=== PATIENT | male | born 1980 | race African-American/Black ===

== ENCOUNTER 2016-08-14 11:27 | Inpatient (IN) ==
--- NOTE | 2016-08-14 11:55 | Emergency Department Note ---
Arrival - Arrival Chief Complaint: Abscess Stated Complaint: abscess ED Nursing Triage Note: C/O HAVING ABSCESS ON FACE/CHIN/NECK SINCE MONDAY, STATES WAS GIVEN A RX FOR CLINDAMYCIN ON MONDAY - BUT STATES THAT HE DID NOT GET THAT FILLED., WAS GIVEN 600 MG OF CLINDAMYCIN IV PRIOR TO ARRIVAL ., Mode of Arrival: Stretcher Limitations: No Limitations Source: Patient, Old Records Reviewed, RN Notes Reviewed Time Seen by Provider: 08/14/16 11:41 - History of Present Illness HPI Narrative: Patient is a 36-year-old white male with a history of facial cellulitis and abscess for which he was seen at [facility] emergency department on Saturday 08/12. Patient did not get his medications filled. The patient returned today to [facility] much worse. Swelling has now extended down around his chin down onto the anterior neck. Patient was given IV clindamycin at [facility] prior to transfer today. Onset (ago): day(s) (2) Consistency: constant Severity: moderate, severe Allergies/Adverse Reactions: Allergies Allergy/AdvReac Type Severity Reaction Status Date / Time No Known Allergies Allergy Unverified 08/14/16 11:36 Review of System - Review of System 12 point system: reviewed and no additional remarkable complaints except as stated Medical,Surgical,& Family Hx - Medical History Medical History: noncontributory - Social History Smoking Status: Current every day smoker (One half pack per day) Frequency of Alcohol Use: None Type of Drug Use: None Functional capacity: independent ambulation Exam Vital Signs: Vital Signs Temperature 99.2 F 08/14/16 11:28 Pulse Rate 95 H 08/14/16 11:34 Respiratory Rate 20 08/14/16 11:34 Blood Pressure 134/84 08/14/16 11:34 O2 Sat by Pulse Oximetry 100 08/14/16 11:34 GENERAL: This is a well-nourished well-developed white male in no apparent distress. VITAL SIGNS: Reviewed HEENT: Head is atraumatic and normocephalic. Pupils are equal round react to light. Extraocular movements are intact. Oropharynx is benign with moist mucous membranes. Patient has an area of overlying erythema induration and fluctuance in the area of the chin to the right of the midline. There is some fluctuance in the submental area and there is erythema which extends over the chin to the submental area and onto the anterior portion of the neck. This extends distally to almost the sternoclavicular joint. NECK: Neck is soft and supple without tenderness. There are no masses. There is no lymphadenopathy. LUNGS: Lungs are clear to auscultation. Chest rises symmetrically. There is no chest wall tenderness. CV: Heart is regular rate and rhythm without murmurs rubs or gallops. ABDOMEN: Abdomen is soft, nontender to palpation. There are no abdominal abnormal masses palpated. There is no organomegaly. Bowel sounds are present and active. SKIN: Skin is warm and dry. No rash. EXTREMITIES: Patient has full range of motion without tenderness. There is no pedal edema. NEUROLOGIC: Awake alert and oriented 4. Cranial nerves II through XII are grossly intact. Motor is 5 over 5 in all extremities bilaterally. Course - Consultations Consultation #1: Discussed with hospitalist. Patient will be admitted to their service. Time: 11:56 Results - Labs Labs: Labs are pending at this time. Disposition Clinical Impression: Cellulitis and abscess of face Case discussed with: patient Disposition: Still a Patient Condition: Stable Time of Disposition: 11:56
[2016-08-14] MEDS ORDERED: VANCOMYCIN INJ 1,000 MG in SODIUM CHLORIDE 0.9% 250 ML IV STA (12:02)
[2016-08-14] MEDS ORDERED: HYDROmorphone 2 MG/1 ML VIAL IV STA (12:02)
[2016-08-14] MEDS ORDERED: ONDANSETRON 4 MG/2 ML VIAL IV STA (12:02)
[2016-08-14] MEDS ORDERED: ONDANSETRON 4 MG/2 ML VIAL ONE (12:04)
[2016-08-14] MEDS ORDERED: HYDROmorphone 2 MG/1 ML VIAL ONE (12:04)
--- NOTE | 2016-08-14 12:15 | XRay Report ---
XR chest 2V Date: 08/14/2016 11:48 AM History: Facial cellulitis Comparison: None Technique: PA and lateral chest Findings: The heart is normal in size. Minimal diffuse parenchymal findings at the lung bases. Prior anterior cervical fusion. Unremarkable mediastinum. Impression: Expiratory chest with minimal atelectasis/infiltration at the lung bases. PROCEDURE INTERPRETED AT [facility] DEPARTMENT OF RADIOLOGY Final Report Signed by: Dr. Abby Sandra
[2016-08-14 12:18] LABS: Basophils # 0.1 10*3/uL (0.0-0.2); Basophils % 0.5 % (0.0-0.8); Eosinophils # 0.1 10*3/uL (0.0-0.87); Eosinophils % 0.3 % (0.00-10.9); Hematocrit 45.3 VOL% (42.0-52.0); Hemoglobin 15.4 GM/DL (14.0-18.0); Immature Granulocytes % 0.4 %; Immature Granulocytes Absolute 0.06 #; Lymphocytes # 2.1 10*3/uL (1.4-4.0); Lymphocytes % 14.2 % (21.2-54.2); Mean Corpuscular Hemoglobin 31 PG (27-34); Mean Corpuscular Volume 90.8 FL (87-102); Mean Platelet Volume 9.1 FL (9.6-12.0); Monocytes # 1.3 10*3/uL (0.11-0.8); Monocytes % 8.7 % (1.7-12.7); Neutrophils # 11.1 10*3/uL (1.4-7.4); Neutrophils % 75.9 % (38.7-73.9); Platelet Count 245 T/CUMM (130-400); Red Blood Count 4.99 MC/CUMM (3.8-5.5); Red Cell Distribution Width 11.9 % (9.3-17.3); White Blood Count 14.7 T/CUMM (4-12)
[2016-08-14] MEDS ORDERED: ZALEPLON 5 MG CAPSULE PO PRN (12:24)
[2016-08-14] MEDS ORDERED: MORPHINE 2 MG/1 ML SYRINGE IV PRN (12:24)
--- NOTE | 2016-08-14 12:34 | Hospitalist History & Physical ---
<Jonathan Roberts - Last Filed: 08/14/16 12:23> Assessment and Plan - Time spent with patient Time spent with patient: Greater than 30 minutes (1) Cellulitis and abscess of face Status: Acute Assessment and plan: Fluctuant abscess to mental/submental face and erythematous anterior neck. IV Clinadamycin 900mg. Consult ENT for I&D. Current Visit: Yes History of Present Illness Chief complaint: abscess History of present illness: Mr. Douglass is a 36 year old male with no significant past medical history who presents to the ED with complaints of an abscess x 3 days. The patient reports he shaved on Monday morning and first noticed a reddened, swollen area on his chin Monday night that has progressively worsened. He was seen in the [facility] ED and treated with IV Clindamycin as well as given a Rx for p.o. Clindamycin which he never filled. Patient states that he "has no money" and the prescription was too expensive. Today, on exam, the abscess has worsened and is now inclusive of his chin, submental area and right side of his anterior neck. He is exquisitely tender to palpation of these areas. The submental abscess is approximatedly 4-5cm in diameter and fluctuant. The patient rates this pain as a 10/10 and finds it difficult to smile and speak. He denies any other pain or complaints in the ER. He is retired from the [employer] and smokes 1/2 pack of cigarettes per day. Preliminary labs reveal WBC 14.7. Findings have been discussed with both Dr. Gallagher and Dr. Carbajal. He will be admitted to the hospital medicine service for treatment with IV antibiotics, pain control and possible ENT consult for I&D. Home Medications Medication Instructions Recorded Confirmed Type No Known Home Medications [No 08/14/16 08/14/16 History Known Home Medications] Allergies Allergy/AdvReac Type Severity Reaction Status Date / Time No Known Allergies Allergy Unverified 08/14/16 11:36 Medical,Surgical,& Family Hx - Social History Smoking Status: Current every day smoker (One half pack per day) Frequency of Alcohol Use: None Type of Drug Use: None Marital Status: Single Lives With:: Alone Functional capacity: independent ambulation - Constitutional Constitutional: Absent: fatigue, fever(s), frequent falls, headache(s), weakness - EENT Eyes: Absent: blurry vision, loss of vision Ears: Absent: decreased hearing, ear pain Nose, mouth and throat: Present: neck pain, other (abscess and erythema of mental/submental areas). Absent: dysphagia, epistaxis, headache(s), hoarseness - Cardiovascular Cardiovascular: Absent: chest pain at rest, chest pain with activity, dyspnea, dyspnea on exertion, edema, radiating jaw, neck or arm pain - Respiratory Respiratory: Absent: cough, dyspnea, hemoptysis, dyspnea on exertion, wheezing, pain on inspiration - Gastrointestinal Gastrointestinal: Absent: abdominal pain, change in bowel habits, constipation, nausea, vomiting - Genitourinary Genitourinary: Absent: difficulty urinating, dysuria, flank pain - Musculoskeletal Musculoskeletal: Absent: arthralgias, back pain, joint swelling, limited range of motion, muscle cramps - Neurological Neurological: Present: numbness (lower lip). Absent: abnormal gait, abnormal speech - Psychiatric Psychiatric: Absent: anxiety, depression - Endocrine Endocrine: Absent: cold intolerance, fatigue, heat intolerance - Hematologic/Lymphatic Hematologic/Lymphatic: Absent: easy bleeding, easy bruising Exam - Constitutional Vitals: Period Temp Pulse Resp BP Sys/Swartz Pulse Ox Last 24 Hr 99.2 F 95-110 20-20 134-134/84-90 100-100 Exam: General appearance: normal weight, no acute distress - Head Head exam: Present: normocephalic, atraumatic - Eye Eye exam: Present: EOMI. Absent: conjunctival injection, nystagmus Pupils: Present: MAGDI, normal accommodation - ENT ENT exam: Present: normal exam, normal external ear exam, erythematous mental/ submental abscess - Neck Neck exam: Present: tender to palpation. Absent: thyromegaly - Respiratory Respiratory exam: Present: clear to auscultation bilaterally. Absent: rales, rhonchi, wheezes - Cardiovascular Cardiovascular exam: Present: tachycardia. Absent: carotid bruit, gallop, rubs - GI/Abdominal GI/Abdominal exam: Present: normal bowel sounds. Absent: ascites, distended, mass - Extremities Exam Extremities exam: Present: normal inspection, normal capillary refill. Absent: edema - Back Exam Back exam: Absent: CVA tenderness (L), CVA tenderness (R) - Neurological Exam Neurological exam: Present: alert, oriented X3 - Psychiatric Psychiatric exam: Present: normal affect, normal mood - Skin Skin exam: Present: erythematous abscess to chin and anterior neck, otherwise no abnormalities Results - Labs CBC & BMP: 08/14/16 12:08 Lab Results: I have reviewed the past 24 hour labs <Victor Hugo Carbajal - Last Filed: 08/14/16 13:06> Assessment and Plan (1) Cellulitis and abscess of face Status: Acute Assessment and plan: Agree with clindamycin and ENT consult. Current Visit: Yes History of Present Illness History of present illness: Mr. Douglass is a 36 year old male transferred to the emergency department from [facility] where he presented with a submental abscess that began on Monday and his quickly worsened. The patient was prescribed outpatient antibiotics but failed to purchase them or start therapy. I have independently seen the patient and discussed the case with EVELYN Esparza. I agree with the diagnosis and treatment plan listed above. I evaluated this patient and completed an independent history and physical examination. I coordinated care with EVELYN Esparza. I agree with the documentation that he provides below. The patient is a full code Medical,Surgical,& Family Hx - Medical History Cardio: No history of: Hypertension 12 point system: reviewed and no additional remarkable complaints except as stated - Constitutional Constitutional: Present: as per HPI Exam - Constitutional Vitals: Period Temp Pulse Resp BP Sys/Swartz Pulse Ox Last 24 Hr 99.2 F 91-110 16-20 134-147/84-90 99-100 Results - Labs CBC & BMP: 08/14/16 12:08 08/14/16 12:08 Lab Results: I have reviewed the past 24 hour labs
[2016-08-14 12:43] LABS: Albumin 4.1 G/DL (3.4-5.0); Bilirubin,Total 0.8 MG/DL (0.2-1.0); Calcium 9.2 MG/DL (8.5-10.1); Osmolality,Calculated 272.7 MOS/KG (273-304); Potassium 3.9 MMOL/L (3.5-5.1); Total Protein 7.6 G/DL (6.4-8.3)
[2016-08-14] MEDS ORDERED: CLINDAMYCIN INJ 900 MG in PREMIX 1 EACH IV SCH (13:00)
[2016-08-14] MEDS: ENOXAPARIN 40 MG/0.4 ML SYRINGE SUBCUT SCH (14:58)
[2016-08-14] MEDS: MORPHINE 2 MG/1 ML SYRINGE IV PRN ×3 (15:04→21:06)
[2016-08-14] MEDS: NICOTINE 21 MG/24 HR PATCH TRANSDERM PRN (15:05)
[2016-08-14] MEDS: CLINDAMYCIN INJ 900 MG in PREMIX 1 EACH IV SCH ×2 (17:16→23:41)
[2016-08-14] MEDS: ACETAMINOPHEN 325 MG TABLET PO PRN (18:02)
[2016-08-14] MEDS ORDERED: PHENOL 1.4% THROAT SPRAY 177 ML BOTTLE PO PRN (18:04)
[2016-08-14 19:09] LABS: Apearance,Urine CLEAR (Clear); Bilirubin,Urine Negative (Negative); Blood, Urine Negative (Negative); Glucose,Urine (UA) Negative (Negative); Ketones,Urine Negative (Negative); Mucus,Urine Few /LPF (Occasional); Nitrite,Urine Negative (Negative); Protein,Urine Negative; RBC,Urine <1 /HPF (0-4); Urine Color Yellow (Yellow); Urine Specific Gravity 1.015 (1.001-1.035); Urine Urobilinogen < 2.0 EU/DL (0.2-1.0); WBC,Urine 2 /HPF (0-6)
[2016-08-14 19:15] LABS: Barbiturates Screen,Urine Negative (Negative); Benzodiazepines Screen,Urine Negative (Negative); Cannabinoid Screen,Urine Negative (Negative); Opiate Screen,Urine Positive (Negative); Phencyclidine Screen,Urine Negative (Negative)
[2016-08-15] MEDS: MORPHINE 2 MG/1 ML SYRINGE IV PRN ×6 (04:18→17:33)
[2016-08-15] MEDS: CLINDAMYCIN INJ 900 MG in PREMIX 1 EACH IV SCH ×3 (06:13→17:11)
[2016-08-15 06:21] LABS: Basophils # 0.1 10*3/uL (0.0-0.2); Basophils % 0.6 % (0.0-0.8); Eosinophils # 0.1 10*3/uL (0.0-0.87); Eosinophils % 1.3 % (0.00-10.9); Hematocrit 44.8 VOL% (42.0-52.0); Hemoglobin 14.8 GM/DL (14.0-18.0); Immature Granulocytes % 0.4 %; Immature Granulocytes Absolute 0.04 #; Lymphocytes # 1.6 10*3/uL (1.4-4.0); Lymphocytes % 16.2 % (21.2-54.2); Mean Corpuscular Hemoglobin 30 PG (27-34); Mean Corpuscular Volume 91.4 FL (87-102); Mean Platelet Volume 9.3 FL (9.6-12.0); Monocytes # 1.1 10*3/uL (0.11-0.8); Monocytes % 11.2 % (1.7-12.7); Neutrophils # 7.1 10*3/uL (1.4-7.4); Neutrophils % 70.3 % (38.7-73.9); Platelet Count 230 T/CUMM (130-400); White Blood Count 10.1 T/CUMM (4-12)
[2016-08-15] MEDS ORDERED: DIAZEPAM 5 MG TABLET PO ONE (09:58)
[2016-08-15] MEDS ORDERED: MORPHINE 2 MG/1 ML SYRINGE IV ONE (09:59)
[2016-08-15] MEDS ORDERED: diphenhydrAMINE CAP 25 MG CAPSULE PO ONE (09:59)
[2016-08-15] MEDS ORDERED: LIDOCAINE 2%/EPI 20 ML VIAL MISC INJ ONE (10:28)
--- NOTE | 2016-08-15 10:40 | Hospitalist Progress Note ---
Assessment and Plan (1) Cellulitis and abscess of face Status: Acute Assessment and plan: The patient continues on IV antibiotics and pain medicine. Urine drug screen reveals methamphetamine and narcotic. The patient will continue on present regimen and Dr. Soriano will evaluate him for possible debridement later today. Current Visit: Yes Hospitalist: Subjective Interval history: The patient is resting quietly in room today. He is receiving IV antibiotics with clindamycin. Dr. cruz has agreed to see the patient and consider debridement of the patient's submental abscess. The patient does not have any shortness of breath or angina. Exam - Constitutional Vitals: Period Temp Pulse Resp BP Sys/Swartz Pulse Ox Last 24 Hr 97.6 F-99.5 F 76-111 16-20 100-147/62-90 95-100 Exam: Constitutional System: Mild to moderate distress on account of abscess under the chin. Mild tremulousness. Head: Normocephalic, atraumatic. Ears, Nose and Throat System: No evidence of Otitis or Mastoiditis. No epistaxis or discharge Eyes System: Pupils equal, round, and reactive. Extraocular muscles intact. Neck: Supple, without adenopathy, No jugular venous distention. There is induration of the chin and submental area Respiratory System: Chest clear to auscultation. Cardiovascular System: Heart with regular rate and rhythm. No murmur. GI System: Abdomen soft, nontender. Normo active bowel sounds present. Musculoskeletal System: limbs with no pedal edema. Full distal pulses. Neurological System: No discernable sensory deficit. No aphasia Psychiatric System: Conversation is rational Results - Labs CBC & BMP: 08/15/16 06:12 08/14/16 12:08 Lab Results: I have reviewed the past 24 hour labs
[2016-08-15] MEDS: ENOXAPARIN 40 MG/0.4 ML SYRINGE SUBCUT SCH (12:00)
--- NOTE | 2016-08-15 13:01 | Consultation ---
Assessment and Plan - Time spent with patient Time spent with patient: Greater than 30 minutes (1) Abscess or cellulitis, neck Status: Acute Assessment and plan: Abscess incision and drainage with packing and cultures taken. I will follow- up tomorrow for removal of the packing and possible replacement we may consider him being able to go home and wound care may or may not be able to follow him either with home health or at the hospital he will also be able to follow-up with me. We may want to wait until he gets the results of the culture back so that we can direct her antibiotic therapy. I will defer the above decisions to the hospitalist. Thank you very much for this consult I will continue to follow this case during his stay Current Visit: Yes (2) Facial pain, acute Status: Acute Current Visit: Yes (3) Cellulitis and abscess of face Status: Acute Current Visit: Yes History of Present Illness - Data of Consult Patient: new to practice Consult date: 08/15/16 Requesting Physician: Fredis Cervantes - Consult Narrative Reason for consult: Facial and neck abscess History of present illness: Mr. Douglass is a 36 year old male with a chin and neck abscess that has not resolved with IV antibiotics and has continued to increase and pain and size over the last few days and he is consulted for evaluation and treatment CC: Fredis Cervantes MD - Home Medications and Allergies Home Medications: Home Medications Medication Instructions Recorded Confirmed Type No Known Home Medications [No 08/14/16 08/14/16 History Known Home Medications] Allergies/Adverse Reactions: Allergies Allergy/AdvReac Type Severity Reaction Status Date / Time No Known Allergies Allergy Unverified 08/14/16 11:36 12 point system: reviewed and no additional remarkable complaints except as stated Medical,Surgical,& Family Hx - Medical History Cardio: No history of: Hypertension - Social History Smoking Status: Current every day smoker Frequency of Alcohol Use: None Type of Drug Use: None Exam - Constitutional Vitals: Period Temp Pulse Resp BP Sys/Swartz Pulse Ox Last 24 Hr 97.6 F-99.5 F 76-111 16-20 100-138/62-90 95-100 General appearance: normal weight, mild distress (Pain secondary to the abscesses) - Head Head exam: Present: other (Chin abscess and neck abscess fluctuant with calor dolor) - Eye Eye exam: Present: EOMI Pupils: Present: MAGDI - ENT ENT exam: Present: normal exam, normal external ear exam, normal oropharynx - Neck Neck exam: Present: tenderness, other (Midline neck abscess deep extending through the platysma to the strap muscles.) - Respiratory Respiratory exam: Present: clear to auscultation bilaterally - GI/Abdominal GI/Abdominal exam: Present: soft (No gross organomegaly) - Extremities Exam Extremities exam: Present: normal inspection, normal capillary refill - Neurological Exam Neurological exam: Present: alert, oriented X3, CN II-XII intact - Psychiatric Psychiatric exam: Present: normal affect, normal mood - Skin Skin exam: Present: normal color, warm Results - Labs CBC & BMP: 08/15/16 06:12 08/14/16 12:08 Lab Results: I have reviewed the past 24 hour labs
[2016-08-15] MEDS: NICOTINE 21 MG/24 HR PATCH TRANSDERM PRN (14:19)
[2016-08-15] MEDS ORDERED: ZIPRASIDONE 20 MG/1 ML VIAL IM PRN (15:28)
[2016-08-15] MEDS: DIAZEPAM 5 MG TABLET PO SCH ×3 (15:37→20:49)
[2016-08-15] MEDS: ACETAMINOPHEN 325 MG TABLET PO PRN (15:43)
[2016-08-15] MEDS ORDERED: DIAZEPAM 10 MG/2 ML SYRINGE IM ONE (15:46)
[2016-08-15] MEDS ORDERED: ACETAMINOPHEN 325 MG TABLET PO PRN (17:45)
[2016-08-16] MEDS: CLINDAMYCIN INJ 900 MG in PREMIX 1 EACH IV SCH ×2 (00:11→05:27)
[2016-08-16] MEDS: DIAZEPAM 5 MG TABLET PO SCH ×4 (08:41→21:06)
[2016-08-16] MEDS: MORPHINE 2 MG/1 ML SYRINGE IV PRN ×4 (10:37→22:32)
[2016-08-16] MEDS: SULFAMETHOX/TRIMETHOPRIM 800-160 MG TABLET PO SCH ×2 (10:37→21:06)
[2016-08-16] MEDS: ENOXAPARIN 40 MG/0.4 ML SYRINGE SUBCUT SCH (13:30)
--- NOTE | 2016-08-16 15:28 | Hospitalist Progress Note ---
Assessment and Plan (1) Cellulitis and abscess of face Status: Acute Assessment and plan: The patient continues on IV antibiotics and pain medicine. Urine drug screen reveals methamphetamine and narcotic. The patient will continue on present regimen and Dr. Leong will evaluate him for progress later today Current Visit: Yes Hospitalist: Subjective Interval history: The patient is more rational today. He is not having tremulousness. The patient continues to have pain greater than expected but he is responsive and cooperative to a certain degree. The patient is anxious to see Dr. leong for follow-up today. Exam - Constitutional Vitals: Period Temp Pulse Resp BP Sys/Swartz Pulse Ox Last 24 Hr 98 F-102.7 F 91-155 18-20 124-146/74-102 95-100 Exam: Constitutional System: Mild to moderate distress on account of abscess under the chin. Mild tremulousness. Head: Normocephalic, atraumatic. Ears, Nose and Throat System: No evidence of Otitis or Mastoiditis. No epistaxis or discharge Eyes System: Pupils equal, round, and reactive. Extraocular muscles intact. Neck: Supple, without adenopathy, No jugular venous distention. There is surgical scar with packing in place in the chin with a tunnel under the chin. There is less induration since debridement. Respiratory System: Chest clear to auscultation. Cardiovascular System: Heart with regular rate and rhythm. No murmur. GI System: Abdomen soft, nontender. Normo active bowel sounds present. Musculoskeletal System: limbs with no pedal edema. Full distal pulses. Neurological System: No discernable sensory deficit. No aphasia Psychiatric System: Conversation is rational Results - Labs CBC & BMP: 08/15/16 06:12 08/14/16 12:08 Lab Results: I have reviewed the past 24 hour labs
[2016-08-16] MEDS ORDERED: methylPREDNISolone SOD SUC 40 MG/1 ML VIAL ONE (16:02)
[2016-08-16] MEDS: VANCOMYCIN INJ 1,250 MG in SODIUM CHLORIDE 0.9% 250 ML IV SCH (18:02)
[2016-08-16] MEDS: MUPIROCIN 2% OINT 22 GM TUBE TOP SCH (21:06)
[2016-08-17] MEDS: VANCOMYCIN INJ 1,250 MG in SODIUM CHLORIDE 0.9% 250 ML IV SCH ×3 (03:48→21:00)
[2016-08-17] MEDS ORDERED: LIDOCAINE 2%/EPI 20 ML VIAL ONE ×2 (06:49→11:31)
--- NOTE | 2016-08-17 09:02 | Progress Note ---
Assessment and Plan - Time spent with patient Time spent with patient: Less than 30 minutes (1) Abscess or cellulitis, neck Status: Acute Assessment and plan: Abscess incision and drainage with packing and cultures taken. I will follow- up tomorrow for removal of the packing and possible replacement we may consider him being able to go home and wound care may or may not be able to follow him either with home health or at the hospital he will also be able to follow-up with me. We may want to wait until he gets the results of the culture back so that we can direct her antibiotic therapy. I will defer the above decisions to the hospitalist. Thank you very much for this consult I will continue to follow this case during his stay 08/16/2016 we will change his antibiotics to oral Bactrim additionally we will start IV vancomycin to hopefully get a quicker response to the worsening cervical cellulitis. Additionally because of the continued purulence after incision and drainage we will take him to the OR where we can be more aggressive with abscess incision and drainage and debridement and a devitalized infected necrotic tissue that may be present risks and benefits are discussed and he desires to do this in the OR which will be done tomorrow. Hopefully will see improvement after this will hope for discharge on Monday. Current Visit: Yes (2) Facial pain, acute Status: Acute Current Visit: Yes (3) Cellulitis and abscess of face Status: Acute Current Visit: Yes Family Medicine PN Sub Interval history: Postprocedure day 1 facial abscess incision and drainage with packing culture results reveal MRSA sensitive to Bactrim and vancomycin. Patient notes extent of cellulitis extending down the neck no worsening of abscess formation packed still in place with minimal drainage patient has been intermittently verbally agitated secondary to the situation and has been difficult to console he has been seen by the administration about this and is calm down though he does still get intermittently agitated Exam (Progress Note) - Constitutional Vitals: Period Temp Pulse Resp BP Sys/Swartz Pulse Ox Last 24 Hr 96.0 F-100.7 F 80-123 18-19 95-143/69-84 95-99 General appearance: normal weight, no acute distress - Head Head exam: Present: normal inspection, normocephalic - Eye Eye exam: Present: EOMI Pupils: Present: MAGDI - ENT ENT exam: Present: normal exam, normal external ear exam, normal oropharynx - Neck Neck exam: Present: tenderness, other (Incision and drainage with packing in place of the chin and submental area packing removed at bedside revealing gross purulence with extension into the supraclavicular area with cellulitis after the abscess and bacteria not being sensitive to the antibiotics that he was on at that time the neck is diffusely indurated and warm) - Respiratory Respiratory exam: Present: other (No shortness breath or difficulty breathing) - GI/Abdominal GI/Abdominal exam: Present: soft - Extremities Exam Extremities exam: Present: normal inspection - Neurological Exam Neurological exam: Present: alert, oriented X3, CN II-XII intact - Psychiatric Psychiatric exam: Present: agitated, anxious - Skin Skin exam: Present: normal color, warm, other (Erythema of the neck see above) Results - Labs CBC & BMP: 08/15/16 06:12 08/14/16 12:08 Lab Results: I have reviewed the past 24 hour labs (MRSA sensitive to Vanco and Bactrim)
[2016-08-17] MEDS: LACTATED RINGERS 1,000 ML IV SCH (10:22)
[2016-08-17] MEDS ORDERED: VANCOMYCIN 1,000 MG VIAL ONE (10:25)
[2016-08-17] MEDS ORDERED: LIDOCAINE 2% 5 ML VIAL ONE (10:39)
[2016-08-17] MEDS ORDERED: ROCURONIUM 100 MG/10 ML VIAL IV ONE (10:39)
[2016-08-17] MEDS ORDERED: SUCCINYLCHOLINE 200 MG/10 ML VIAL ONE (10:39)
[2016-08-17] MEDS ORDERED: PROPOFOL 200 MG/20 ML VIAL IV ONE (10:39)
[2016-08-17] MEDS ORDERED: ONDANSETRON 4 MG/2 ML VIAL ONE ×2 (10:39→11:46)
[2016-08-17] MEDS ORDERED: DEXAMETHASONE 10 MG/1 ML VIAL ONE (10:39)
[2016-08-17] MEDS ORDERED: MUPIROCIN 2% OINT 22 GM TUBE TOP ONE (11:31)
[2016-08-17] MEDS ORDERED: ONDANSETRON 4 MG/2 ML VIAL IV PRN (11:34)
[2016-08-17] MEDS ORDERED: LACTATED RINGERS 1,000 ML IV ONE (11:35)
[2016-08-17] MEDS ORDERED: fentaNYL 100 MCG/2 ML VIAL ONE (11:35)
[2016-08-17] MEDS ORDERED: MIDAZOLAM 2 MG/2 ML VIAL ONE (11:35)
[2016-08-17] MEDS ORDERED: SEVOFLURANE 1 UNIT/15 MINUTE INH ONE (11:35)
[2016-08-17] MEDS ORDERED: HYDROmorphone 2 MG/1 ML VIAL ONE (11:46)
[2016-08-17] MEDS: HYDROmorphone 2 MG/1 ML VIAL IV PRN ×4 (11:48→12:11)
[2016-08-17] MEDS ORDERED: LACTATED RINGERS 1,000 ML IV SCH (12:00)
[2016-08-17] MEDS: DIAZEPAM 5 MG TABLET PO SCH ×4 (13:39→21:01)
--- NOTE | 2016-08-17 13:56 | Anesthesia Post-Op ---
Anesthesia Post OP - Post Ansesthetic Evaluation Patient seen in post op: Yes Resp: within normal limits CV: within normal limits Mental: within normal limits Temp: within normal limits [id number]: within normal limits Nausea and Vomiting: within normal limits Pain: within normal limits
[2016-08-17] MEDS: SULFAMETHOX/TRIMETHOPRIM 800-160 MG TABLET PO SCH ×2 (14:24→21:01)
[2016-08-17] MEDS: MUPIROCIN 2% OINT 22 GM TUBE TOP SCH ×2 (14:28→21:00)
--- NOTE | 2016-08-17 15:29 | Hospitalist Progress Note ---
Assessment and Plan (1) Cellulitis and abscess of face Status: Acute Assessment and plan: The patient continues on IV antibiotics and pain medicine. We will continue postoperative care as guided by Dr. Soriano. Current Visit: Yes Hospitalist: Subjective Interval history: The patient had extensive debridement of the chin and neck today including a 3 x 10 cm abscess capsule resection. The patient complains of pain Exam - Constitutional Vitals: Period Temp Pulse Resp BP Sys/Swartz Pulse Ox Last 24 Hr 96.0 F-100.7 F 80-123 14-28 95-152/50-100 95-100 Exam: Constitutional System: Mild to moderate distress on account of surgical scar under the chin. Mild tremulousness. Head: Normocephalic, atraumatic. Ears, Nose and Throat System: No evidence of Otitis or Mastoiditis. No epistaxis or discharge Eyes System: Pupils equal, round, and reactive. Extraocular muscles intact. Neck: Supple, without adenopathy, No jugular venous distention. There is surgical scar with packing in place in the chin with a tunnel under the chin. There is less induration since debridement. Respiratory System: Chest clear to auscultation. Cardiovascular System: Heart with regular rate and rhythm. No murmur. GI System: Abdomen soft, nontender. Normo active bowel sounds present. Musculoskeletal System: limbs with no pedal edema. Full distal pulses. Neurological System: No discernable sensory deficit. No aphasia Psychiatric System: Conversation is rational Results - Labs CBC & BMP: 08/15/16 06:12 08/14/16 12:08 Lab Results: I have reviewed the past 24 hour labs
[2016-08-17] MEDS: MORPHINE 2 MG/1 ML SYRINGE IV PRN ×2 (17:28→21:01)
[2016-08-18 05:55] LABS: Basophils % 0.1 % (0.0-0.8); Eosinophils % 0.1 % (0.00-10.9); Immature Granulocytes % 0.5 %; Immature Granulocytes Absolute 0.06 #; Lymphocytes % 7.9 % (21.2-54.2); Mean Corpuscular HGB Conc 33.8 GM/DL (32-36); Mean Corpuscular Hemoglobin 31 PG (27-34); Mean Corpuscular Volume 90.7 FL (87-102); Mean Platelet Volume 9.8 FL (9.6-12.0); Monocytes # 0.7 10*3/uL (0.11-0.8); Neutrophils # 10.4 10*3/uL (1.4-7.4); Neutrophils % 85.4 % (38.7-73.9); Red Blood Count 4.08 MC/CUMM (3.8-5.5); Red Cell Distribution Width 12.1 % (9.3-17.3); White Blood Count 12.2 T/CUMM (4-12)
[2016-08-18 06:09] LABS: Calcium 9.1 MG/DL (8.5-10.1); Magnesium 2.2 MG/DL (1.8-2.4); Osmolality,Calculated 279.4 MOS/KG (273-304); Potassium 4.2 MMOL/L (3.5-5.1)
[2016-08-18 06:16] LABS: Hemoglobin 12.5 GM/DL (14.0-18.0); Platelet Count 286 T/CUMM (130-400)
[2016-08-18] MEDS: VANCOMYCIN INJ 1,250 MG in SODIUM CHLORIDE 0.9% 250 ML IV SCH ×3 (06:17→20:11)
[2016-08-18] MEDS: MORPHINE 2 MG/1 ML SYRINGE IV PRN ×4 (08:50→20:13)
[2016-08-18] MEDS: SULFAMETHOX/TRIMETHOPRIM 800-160 MG TABLET PO SCH ×2 (08:50→20:12)
[2016-08-18] MEDS: DIAZEPAM 5 MG TABLET PO SCH ×4 (08:51→20:12)
[2016-08-18] MEDS: MUPIROCIN 2% OINT 22 GM TUBE TOP SCH ×2 (09:28→20:12)
--- NOTE | 2016-08-18 11:48 | Hospitalist Progress Note ---
Assessment and Plan (1) Cellulitis and abscess of face Status: Acute Assessment and plan: The patient continues on IV antibiotics and pain medicine. We will continue postoperative care as guided by Dr. Soriano. Current Visit: Yes Hospitalist: Subjective Interval history: The patient continues on IV antibiotic. He had extensive debridement of abscess yesterday Exam - Constitutional Vitals: Period Temp Pulse Resp BP Sys/Swartz Pulse Ox Last 24 Hr 96.0 F-99.5 F 85-110 14-28 109-144/50-95 95-99 Exam: Constitutional System: Mild to moderate distress on account of surgical scar under the chin. Mild tremulousness. Head: Normocephalic, atraumatic. Ears, Nose and Throat System: No evidence of Otitis or Mastoiditis. No epistaxis or discharge Eyes System: Pupils equal, round, and reactive. Extraocular muscles intact. Neck: Supple, without adenopathy, No jugular venous distention. There is surgical scar with packing in place in the chin with a tunnel under the chin. There is less induration since debridement. Respiratory System: Chest clear to auscultation. Cardiovascular System: Heart with regular rate and rhythm. No murmur. GI System: Abdomen soft, nontender. Normo active bowel sounds present. Musculoskeletal System: limbs with no pedal edema. Full distal pulses. Neurological System: No discernable sensory deficit. No aphasia Psychiatric System: Conversation is rational Results - Labs CBC & BMP: 08/18/16 04:49 08/18/16 04:49 Lab Results: I have reviewed the past 24 hour labs
--- NOTE | 2016-08-18 16:02 | Progress Note ---
Assessment and Plan - Time spent with patient Time spent with patient: Less than 30 minutes (1) Abscess or cellulitis, neck Status: Acute Assessment and plan: Abscess incision and drainage with packing and cultures taken. I will follow- up tomorrow for removal of the packing and possible replacement we may consider him being able to go home and wound care may or may not be able to follow him either with home health or at the hospital he will also be able to follow-up with me. We may want to wait until he gets the results of the culture back so that we can direct her antibiotic therapy. I will defer the above decisions to the hospitalist. Thank you very much for this consult I will continue to follow this case during his stay 08/16/2016 we will change his antibiotics to oral Bactrim additionally we will start IV vancomycin to hopefully get a quicker response to the worsening cervical cellulitis. Additionally because of the continued purulence after incision and drainage we will take him to the OR where we can be more aggressive with abscess incision and drainage and debridement and a devitalized infected necrotic tissue that may be present risks and benefits are discussed and he desires to do this in the OR which will be done tomorrow. Hopefully will see improvement after this will hope for discharge on Monday. 08/18/2016 patient currently on oral Bactrim and vancomycin because of the extensive nature of this abscess and cellulitis I think we should try to continue some double coverage and look at possibly being able to do this with home health. Packing was removed at bedside and we will evaluate the patient tomorrow but I am hopeful that he will be able to go home tomorrow with follow- up. Current Visit: Yes (2) Facial pain, acute Status: Acute Current Visit: Yes (3) Cellulitis and abscess of face Status: Acute Current Visit: Yes Family Medicine PN Sub Interval history: Postop day #1 abscess incision and drainage with debridement and packing. Patient is MRSA positive sensitive to vancomycin and Bactrim currently on both for double coverage. No worsening of condition overnight. Exam (Progress Note) - Constitutional Vitals: Period Temp Pulse Resp BP Sys/Swartz Pulse Ox Last 24 Hr 97.6 F-98.2 F 85-108 16-20 109-132/53-85 97-99 General appearance: normal weight, no acute distress - Head Head exam: Present: normal inspection, normocephalic - Eye Eye exam: Present: EOMI Pupils: Present: MAGDI - ENT ENT exam: Present: normal exam, normal external ear exam, normal oropharynx - Neck Neck exam: Present: tenderness, other (Extensive packing removed from both chin abscesses and neck abscess with a decrease in erythema no purulent discharge no fluctuance mild induration throughout clinical evidence of improvement on appropriate antibiotics) - Respiratory Respiratory exam: Present: clear to auscultation bilaterally - Cardiovascular Cardiovascular exam: Present: regular rate and rhythm - GI/Abdominal GI/Abdominal exam: Present: soft - Extremities Exam Extremities exam: Present: normal inspection - Back Exam Back exam: Present: normal inspection - Neurological Exam Neurological exam: Present: alert, oriented X3, CN II-XII intact - Psychiatric Psychiatric exam: Present: agitated, anxious - Skin Skin exam: Present: normal color, warm Results - Labs CBC & BMP: 08/18/16 04:49 08/18/16 04:49 Lab Results: I have reviewed the past 24 hour labs
[2016-08-18] MEDS: LACTATED RINGERS 1,000 ML IV SCH (16:42)
[2016-08-19] MEDS: VANCOMYCIN INJ 1,250 MG in SODIUM CHLORIDE 0.9% 250 ML IV SCH ×2 (03:48→11:23)
[2016-08-19] MEDS: MORPHINE 2 MG/1 ML SYRINGE IV PRN ×2 (03:49→09:13)
[2016-08-19] MEDS: DIAZEPAM 5 MG TABLET PO SCH ×2 (09:13→14:45)
[2016-08-19] MEDS: SULFAMETHOX/TRIMETHOPRIM 800-160 MG TABLET PO SCH (09:13)
--- NOTE | 2016-08-19 09:31 | Progress Note ---
Assessment and Plan - Time spent with patient Time spent with patient: Less than 30 minutes (1) Abscess or cellulitis, neck Status: Acute Assessment and plan: Abscess incision and drainage with packing and cultures taken. I will follow- up tomorrow for removal of the packing and possible replacement we may consider him being able to go home and wound care may or may not be able to follow him either with home health or at the hospital he will also be able to follow-up with me. We may want to wait until he gets the results of the culture back so that we can direct her antibiotic therapy. I will defer the above decisions to the hospitalist. Thank you very much for this consult I will continue to follow this case during his stay 08/16/2016 we will change his antibiotics to oral Bactrim additionally we will start IV vancomycin to hopefully get a quicker response to the worsening cervical cellulitis. Additionally because of the continued purulence after incision and drainage we will take him to the OR where we can be more aggressive with abscess incision and drainage and debridement and a devitalized infected necrotic tissue that may be present risks and benefits are discussed and he desires to do this in the OR which will be done tomorrow. Hopefully will see improvement after this will hope for discharge on Monday. 08/18/2016 patient currently on oral Bactrim and vancomycin because of the extensive nature of this abscess and cellulitis I think we should try to continue some double coverage and look at possibly being able to do this with home health. Packing was removed at bedside and we will evaluate the patient tomorrow but I am hopeful that he will be able to go home tomorrow with follow- up. 08/19/2016 I recommend discharge with oral Bactrim and IV vancomycin home health has been notified and is setting this. I would like for him to follow-up with me next week in the office to continue to evaluate improvement make sure there is no additional need for incision and drainage of the small fluid collection that is most likely a seroma in his submental area. Current Visit: Yes (2) Facial pain, acute Status: Acute Current Visit: Yes (3) Cellulitis and abscess of face Status: Acute Current Visit: Yes Family Medicine PN Sub Interval history: Postop day #2 incision and drainage abscess with removal of the packing yesterday. Patient notes clinically feeling better. Home health is been notified to set up home IV vancomycin treatment and continued oral Bactrim. Exam (Progress Note) - Constitutional Vitals: Period Temp Pulse Resp BP Sys/Swartz Pulse Ox Last 24 Hr 97.9 F-99.1 F 73-108 16-20 101-136/59-85 93-100 General appearance: normal weight, no acute distress - Head Head exam: Present: normal inspection, normocephalic - Eye Eye exam: Present: EOMI Pupils: Present: MAGDI - ENT ENT exam: Present: normal exam, normal external ear exam, normal oropharynx - Neck Neck exam: Present: tenderness, other (Continued but more much improved erythema to the localized area over the original site of the abscess. Improved induration throughout the skin of the neck mild nonfebrile fluctuance around the incision probably consistent with some seroma formation.) - Respiratory Respiratory exam: Present: other (No shortness of breath or difficulty breathing ) - GI/Abdominal GI/Abdominal exam: Present: soft - Back Exam Back exam: Present: normal inspection - Neurological Exam Neurological exam: Present: alert, oriented X3, CN II-XII intact - Psychiatric Psychiatric exam: Present: normal affect (Improved agitation and anxiety this morning), normal mood - Skin Skin exam: Present: normal color (See above descriptions incisions healing well secondarily), warm Results - Labs CBC & BMP: 08/18/16 04:49 08/18/16 04:49 Lab Results: I have reviewed the past 24 hour labs
[2016-08-19] MEDS: MUPIROCIN 2% OINT 22 GM TUBE TOP SCH (11:26)
[2016-08-19 12:32] VITALS: BP 152/86
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
[2016-08-19] MEDS: LACTATED RINGERS 1,000 ML IV SCH (14:45)
== END 2016-08-19 14:46 | disposition home or self-care (01) | DRG 571 ==
LOC: N.ED 11:27 → SUATTDRO 12:12 → N.EDINP 12:12 → N.5E 13:12
PROVIDERS: ADMIT Family Medicine; ATTEND Internal Medicine